=== PATIENT | male | born 1960 ===

== ENCOUNTER 2021-05-10 17:01 | Inpatient (IN) ==
[2021-05-10] MEDS ORDERED: DOCUSATE SODIUM 100 MG CAPSULE PO PRN (19:05)
[2021-05-10] MEDS ORDERED: DEXTROSE 50% 25 GM/50 ML VIAL IV PRN (19:05)
[2021-05-10] MEDS ORDERED: NICOTINE 21 MG/24 HR PATCH TRANSDERM PRN (19:05)
[2021-05-10] MEDS ORDERED: hydrALAZINE 20 MG/1 ML VIAL IV PRN (19:05)
[2021-05-10] MEDS ORDERED: ONDANSETRON 4 MG/2 ML VIAL IV PRN (19:05)
[2021-05-10] MEDS ORDERED: ZALEPLON 5 MG CAPSULE PO PRN (19:05)
[2021-05-10] MEDS ORDERED: ACETAMINOPHEN 325 MG TABLET PO PRN (19:05)
[2021-05-10] MEDS ORDERED: guaiFENesin/DM ER 600-30 MG TABLET PO PRN (19:05)
[2021-05-10] MEDS ORDERED: GLUCAGON 1 MG VIAL IM PRN (19:05)
[2021-05-10] MEDS ORDERED: diphenhydrAMINE CAP 25 MG CAPSULE PO PRN (19:05)
[2021-05-10] MEDS ORDERED: ALBUTEROL 2.5 MG/3 ML NEB RESP TX PRN (19:11)
[2021-05-10] MEDS ORDERED: POTASSIUM CHLORIDE 20 MEQ TABLET PO ONE (19:12)
[2021-05-10 19:23] LABS: Basophils % 0.3 % (0.0-0.8); Hemoglobin 7.4 GM/DL (14.0-18.0); Immature Granulocytes % 0.4 %; Immature Granulocytes Absolute 0.03 #; Lymphocytes % 13.5 % (21.2-54.2); Mean Corpuscular HGB Conc 29.6 GM/DL (32-36); Mean Corpuscular Volume 73.3 FL (87-102); Mean Platelet Volume 9.5 FL (9.6-12.0); Monocytes % 7.5 % (1.7-12.7); Neutrophils % 78.3 % (38.7-73.9); Platelet Count 147 T/CUMM (130-400); Red Blood Count 3.41 MC/CUMM (3.8-5.5); Red Cell Distribution Width 18.3 % (9.3-17.3); White Blood Count 7.6 T/CUMM (4-12)
[2021-05-10 19:41] LABS: Calcium 8.1 MG/DL (8.5-10.1); Osmolality,Calculated 273.1 MOS/KG (273-304); Potassium 3.1 MMOL/L (3.5-5.1)
[2021-05-10 20:24] LABS: Bilirubin,Urine Negative (Negative); Blood, Urine Negative (Negative); Glucose,Urine (UA) >=500 mg/dL (Negative); Ketones,Urine 80 mg/dL (Negative); Mucus,Urine Occasional /LPF (Occasional); Nitrite,Urine Negative (Negative); Protein,Urine 30 MG/DL; RBC,Urine <1 /HPF (0-4); Squamous Epithelial Cell,Urine Occasional /HPF (0-10); Urine Appearance CLEAR (Clear); Urine Color Yellow (Yellow); Urine Specific Gravity 1.017 (1.001-1.035)
[2021-05-10] MEDS: FOLIC ACID 1 MG TABLET PO SCH (20:43)
[2021-05-10] MEDS: AZITHROMYCIN INJ 500 MG in SODIUM CHLORIDE 0.9% 250 ML IV SCH (20:44)
[2021-05-10] MEDS: THIAMINE 100 MG TABLET PO SCH (20:44)
[2021-05-10] MEDS: SODIUM CHLORIDE 0.9% 1,000 ML IV SCH (20:44)
[2021-05-10] MEDS: HEPARIN 5,000 UNIT/1 ML VIAL SUBCUT SCH (20:45)
[2021-05-11] MEDS: ALBUTEROL 2.5 MG/3 ML NEB RESP TX SCH ×4 (00:41→19:47)
[2021-05-11 05:42] LABS: Basophils % 0.6 % (0.0-0.8); Eosinophils % 0.2 % (0.00-10.9); Hematocrit 23.2 VOL% (42.0-52.0); Hemoglobin 6.9 GM/DL (14.0-18.0); Immature Granulocytes % 0.6 %; Immature Granulocytes Absolute 0.03 #; Lymphocytes # 1.1 10*3/uL (1.4-4.0); Lymphocytes % 22.4 % (21.2-54.2); Mean Corpuscular HGB Conc 29.7 GM/DL (32-36); Mean Corpuscular Volume 72.5 FL (87-102); Mean Platelet Volume 10.4 FL (9.6-12.0); Monocytes % 11.3 % (1.7-12.7); NRBC # 0.02 10*3/uL; Neutrophils % 64.9 % (38.7-73.9); Platelet Count 139 T/CUMM (130-400)
[2021-05-11 06:01] LABS: Albumin 3.3 G/DL (3.4-5.0); Bilirubin,Total 0.9 MG/DL (0.20-1.00); Calcium 8.3 MG/DL (8.5-10.1); Osmolality,Calculated 272.1 MOS/KG (273-304); Potassium 3.1 MMOL/L (3.5-5.1); Total Protein 6.7 G/DL (6.4-8.2)
[2021-05-11] MEDS: SODIUM CHLORIDE 0.9% 1,000 ML IV SCH ×2 (06:41→06:45)
[2021-05-11 08:07] LABS: Total Protein (Chem) 7.2 G/DL (6.4-8.3)
[2021-05-11] MEDS: MULTIVITAMIN (CENTRUM) TABLET PO SCH (08:42)
[2021-05-11] MEDS: PANTOPRAZOLE 40 MG TABLET PO SCH (08:42)
[2021-05-11] MEDS: HEPARIN 5,000 UNIT/1 ML VIAL SUBCUT SCH ×2 (08:42→17:57)
[2021-05-11] MEDS: THIAMINE 100 MG TABLET PO SCH ×2 (08:42→21:35)
[2021-05-11] MEDS: FOLIC ACID 1 MG TABLET PO SCH ×2 (08:42→21:35)
[2021-05-11] MEDS ORDERED: SODIUM CHLORIDE 0.9% 1,000 ML IV PRN (10:12)
[2021-05-11 10:37] LABS: Albumin (SPE) 4.6 G/DL (3.2-5.3); Albumin (SPE) Rel % 63.3 %; Alpha 1 (SPE) 0.2 G/DL (0.1-0.4); Alpha 1 (SPE) Rel % 3.3 %; Alpha 2 (SPE) 0.6 G/DL (0.4-1.0); Alpha 2 (SPE) Rel % 8.6 %; Beta (SPE) 0.6 G/DL (0.5-1.1); Gamma (SPE) 1.1 G/DL (0.7-1.7); Gamma (SPE) Rel % 15.8 %
[2021-05-11 10:44] LABS: Basophils % 0.3 % (0.0-0.8); Eosinophils % 0.3 % (0.00-10.9); Folate 14.34 NG/ML (5.38-24.0); Hematocrit 23.9 VOL% (42.0-52.0); Hemoglobin 7.1 GM/DL (14.0-18.0); Immature Granulocytes % 0.5 %; Immature Granulocytes Absolute 0.03 #; Lymphocytes # 1.1 10*3/uL (1.4-4.0); Mean Corpuscular HGB Conc 29.7 GM/DL (32-36); Mean Corpuscular Volume 72.2 FL (87-102); Mean Platelet Volume 9.9 FL (9.6-12.0); Monocytes % 9.9 % (1.7-12.7); Platelet Count 143 T/CUMM (130-400); Red Blood Count 3.31 MC/CUMM (3.8-5.5); Red Cell Distribution Width 18.3 % (9.3-17.3); Vitamin B12 376 PG/ML (211-911)
[2021-05-11] MEDS ORDERED: TUBERCULIN SKIN TEST 0.1 ML SYRINGE INTRADERM ONE (11:00)
[2021-05-11 11:45] LABS: Sedimentation Rate-Westergren 35 MM/HR (0-20)
[2021-05-11] MEDS: AZITHROMYCIN INJ 500 MG in SODIUM CHLORIDE 0.9% 250 ML IV SCH (21:34)
[2021-05-11] MEDS: INSULIN LISPRO 100 UNIT/ML SUBCUT SCH (21:35)
[2021-05-12] MEDS: ALBUTEROL 2.5 MG/3 ML NEB RESP TX SCH ×2 (00:06→07:25)
[2021-05-12] MEDS: HEPARIN 5,000 UNIT/1 ML VIAL SUBCUT SCH ×2 (01:16→08:14)
[2021-05-12] MEDS: SODIUM CHLORIDE 0.9% 1,000 ML IV SCH ×2 (03:40→03:41)
[2021-05-12 05:24] LABS: Basophils % 0.5 % (0.0-0.8); Eosinophils % 0.7 % (0.00-10.9); Hematocrit 29.9 VOL% (42.0-52.0); Immature Granulocytes % 0.5 %; Immature Granulocytes Absolute 0.03 #; Lymphocytes # 1.1 10*3/uL (1.4-4.0); Lymphocytes % 19.8 % (21.2-54.2); Mean Corpuscular HGB Conc 30.4 GM/DL (32-36); Mean Corpuscular Volume 76.3 FL (87-102); Mean Platelet Volume 10.3 FL (9.6-12.0); Monocytes % 12.7 % (1.7-12.7); Neutrophils % 65.8 % (38.7-73.9); Platelet Count 149 T/CUMM (130-400); Red Blood Count 3.92 MC/CUMM (3.8-5.5); Red Cell Distribution Width 17.9 % (9.3-17.3); White Blood Count 5.6 T/CUMM (4-12)
[2021-05-12 05:28] LABS: Hemoglobin 9.1 GM/DL (14.0-18.0)
[2021-05-12 05:33] LABS: Calcium 8.6 MG/DL (8.5-10.1); Osmolality,Calculated 273.5 MOS/KG (273-304); Potassium 2.8 MMOL/L (3.5-5.1)
[2021-05-12] MEDS ORDERED: POTASSIUM CHLORIDE 20 MEQ TABLET PO PRN (06:14)
[2021-05-12] MEDS: INSULIN LISPRO 100 UNIT/ML SUBCUT SCH (07:44)
[2021-05-12] MEDS ORDERED: IRON CARBONYL VITAMIN C PO SCH (08:00)
[2021-05-12] MEDS: FOLIC ACID 1 MG TABLET PO SCH (08:14)
[2021-05-12] MEDS: MULTIVITAMIN (CENTRUM) TABLET PO SCH (08:14)
[2021-05-12] MEDS: THIAMINE 100 MG TABLET PO SCH (08:14)
[2021-05-12] MEDS: PANTOPRAZOLE 40 MG TABLET PO SCH (08:15)
[2021-05-12 08:47] VITALS: BP 178/77
[2021-05-12] MEDS ORDERED: POTASSIUM CHLORIDE 20 MEQ PACK PO ONE (09:00)
[2021-05-12] MEDS ORDERED: lisinopriL 10 MG TABLET PO SCH (09:00)
[2021-05-12] MEDS ORDERED: AZITHROMYCIN 250 MG TABLET PO SCH (09:00)
[2021-05-12] MEDS ORDERED: ASPIRIN EC 81 MG TABLET PO SCH (09:00)
[2021-05-13 09:37] LABS: Hemoglobin A1 (Alkaline) 96.9 % (96.5-98.5); Hemoglobin A2 (Alkaline) 3.1 % (1.5-3.5)
== END 2021-05-12 11:15 | disposition left against medical advice (07) | DRG 684 ==
LOC: N.5E → SUATTDRO 19:05
PROVIDERS: ADMIT Internal Medicine; ATTEND Internal Medicine